=== PATIENT | female | born 1980 | race Hispanic/Latino ===

== ENCOUNTER 2022-11-07 10:20 | Emergency (ER) | payer OTHER ==
--- NOTE | 2022-11-07 10:41 | EDPHYS ---
Physician Documentation [facility] Name: Julia Quach Age: 41 yrs Sex: Female : 1980 Arrival Date: 11/07/2022 Time: 10:20 Bed DX5 Private MD: ED Physician Soumya Christina HPI: 11/07 10:34 This 41 yrs old Female presents to ER via Ambulatory with complaints of Sore cp3 Throat, Congestion. 10:34 The patient presents with sore throat. The patient describes throat pain as burning, cp3 raw, scratchy. Onset: The symptoms/episode began/occurred acutely, 3 day(s) ago. 10:34 Severity of symptoms: At their worst the symptoms were moderate, in the emergency cp3 department the symptoms are unchanged. Modifying factors: The symptoms are alleviated by fluids, over the counter medications, Patient's oral intake status: good Denies contact with similarly ill indivduals. Associated signs and symptoms: Pertinent positives: chills, congestion. The patient has experienced a previous episode, approximately 1 years ago, and the symptoms today are exactly the same. risk factors include: type 1 diabetes. Historical: - Allergies: 10:29 No Known Allergies; ll1 - PMHx: 10:29 Diabetes mellitus; ll1 - PSHx: 10:29 hysterectomy; ll1 - Immunization history:: Adult Immunizations up to date. - Social history:: Smoking status: Patient denies any tobacco usage or history of. - Family history:: not pertinent. ROS: 10:34 Neck: Negative for injury, pain, and swelling, Cardiovascular: Negative for chest pain, cp3 palpitations, and edema, Respiratory: Negative for shortness of breath, cough, wheezing, and pleuritic chest pain, Abdomen/GI: Negative for abdominal pain, nausea, vomiting, diarrhea, and constipation, Back: Negative for injury and pain, MS/Extremity: Negative for injury and deformity, Skin: Negative for injury, rash, and discoloration, Neuro: Negative for headache, weakness, numbness, tingling, and seizure, Psych: Negative for depression, anxiety, suicide ideation, homicidal ideation, and hallucinations, Allergy/Immunology: Negative for hives, rash, and allergies, Endocrine: Negative for neck swelling, polydipsia, polyuria, polyphagia, and marked weight changes, Hematologic/Lymphatic: Negative for swollen nodes, abnormal bleeding, and unusual bruising. 10:34 Constitutional: Positive for chills. 10:34 ENT: Positive for sinus congestion, sore throat. Exam: 10:34 ENT: Exam is negative for injury of acute deformity, earache, ear discharge, foreign cp3 body of the ear, hemotympanum, epistaxis, sinus tenderness, peritonsillar abscess dysphagia, dental infection, exudate, abnormal voice, abnormal breath odor, Posterior pharynx: erythema, that is moderate. 10:34 ENT: Posterior pharynx: exudate, that is mild. 10:48 Constitutional: This is a well developed, well nourished patient who is awake, alert, cp3 and in no acute distress. Eyes: Pupils equal round and reactive to light, extra-ocular motions intact. Lids and lashes normal. Conjunctiva and sclera are non-icteric and not injected. Cornea within normal limits. Periorbital areas with no swelling, redness, or edema. Neck: Trachea midline, no thyromegaly or masses palpated, and no cervical lymphadenopathy. Supple, full range of motion without nuchal rigidity, or vertebral point tenderness. No Meningismus. Chest/axilla: Normal chest wall appearance and motion. Nontender with no deformity. No lesions are appreciated. Cardiovascular: Regular rate and rhythm with a normal S1 and S2. No gallops, murmurs, or rubs. Normal PMI, no JVD. No pulse deficits. Respiratory: Lungs have equal breath sounds bilaterally, clear to auscultation and percussion. No rales, rhonchi or wheezes noted. No increased work of breathing, no retractions or nasal flaring. Abdomen/GI: Soft, non-tender, with normal bowel sounds. No distension or tympany. No guarding or rebound. No evidence of tenderness throughout. Back: No spinal tenderness. No costovertebral tenderness. Full range of motion. Skin: Warm, dry with normal turgor. Normal color with no rashes, no lesions, and no evidence of cellulitis. MS/ Extremity: Pulses equal, no cyanosis. Neurovascular intact. Full, normal range of motion. Neuro: Awake and alert, GCS 15, oriented to person, place, time, and situation. Cranial nerves II-XII grossly intact. Motor strength 5/5 in all extremities. Sensory grossly intact. Cerebellar exam normal. Normal gait. Psych: Awake, alert, with orientation to person, place and time. Behavior, mood, and affect are within normal limits. Vital Signs: 10:27 BP 111 / 79; Pulse 98; Resp 15; Temp 97.6; Pulse Ox 99% ; Weight 63.5 kg; Height 4 ft. ll1 9 in. ; Pain 6/10; 10:27 Body Mass Index 30.30 (63.50 kg, 144.78 cm) ll1 10:27 Pain Scale: Adult ll1 MDM: 10:23 Patient medically screened. cp3 10:34 Differential diagnosis: pharyngitis, upper respiratory infection, viral syndrome. Data cp3 reviewed: vital signs, nurses notes. Consideration of Admission/Observation no emergent indication for hospitalization. Administered Medications: No medications were administered Disposition Summary: 11/07/22 10:40 Discharge Ordered Location: Home cp3 Condition: Stable cp3 Diagnosis - Acute upper respiratory infection, unspecified cp3 - Acute pharyngitis, unspecified cp3 Followup: cp3 - With: Antwon Wilks MD - When: As needed - Reason: Discharge Instructions: - Sore Throat cp3 - Upper Respiratory Infection, Adult cp3 - Discharge Summary Sheet ll1 Forms: - Medication Reconciliation Form cp3 - Thank You Letter cp3 - Antibiotic Education cp3 - Prescription Opioid Use cp3 - Patient Portal Instructions cp3 - Leadership Thank You Letter cp3 - Work release form ll1 Prescriptions: - ketorolac 10 mg Oral tablet - take 1 tablet by ORAL route every 8 hours for 3 days as needed for pain; 15 cp3 tablet; Refills: 0, Product Selection Permitted - Augmentin 500-125 mg Oral Tablet - take 1 tablet by ORAL route every 8 hours for 10 days; 30 tablet; Refills: 0, cp3 Product Selection Permitted Signatures: Soumya Christina MD MD cp3 Mavis Teran RN RN ll1 Corrections: (The following items were deleted from the chart) 10:30 10:29 PSHx: None; ll1 ll1
--- NOTE | 2022-11-07 10:41 | ER ---
Nurse's Notes [facility] Name: Julia Quach Age: 41 yrs Sex: Female : 1980 Arrival Date: 11/07/2022 Time: 10:20 Bed DX5 Private MD: Diagnosis: Acute upper respiratory infection, unspecified;Acute pharyngitis, unspecified Presentation: 11/07 10:27 Chief complaint: Patient states: Chills, sore throat, and congestion started Monday. ll1 Coronavirus screen: Client denies travel out of the [place] in the last 14 days. congestion, fatigue, headache. Ebola Screen: Patient denies travel to an Ebola-affected area in the 21 days before illness onset. Initial Sepsis Screen: Does the patient meet any 2 criteria? No. Patient's initial sepsis screen is negative. Does the patient have a suspected source of infection? Yes: Other: red, sore throat. Risk Assessment: Do you want to hurt yourself or someone else? Patient reports no desire to harm self or others. Onset of symptoms was November 04, 2022. 10:27 Method Of Arrival: Ambulatory ll1 10:27 Acuity: PATRICIA 4 ll1 Triage Assessment: 10:28 General: Appears uncomfortable, Behavior is calm, cooperative, appropriate for age. ll1 Pain: Complains of pain in throat. EENT: Reports nasal congestion pain when swallowing. Neuro: No deficits noted. Cardiovascular: No deficits noted. Historical: - Allergies: 10:29 No Known Allergies; ll1 - PMHx: 10:29 Diabetes mellitus; ll1 - PSHx: 10:29 hysterectomy; ll1 - Immunization history:: Adult Immunizations up to date. - Social history:: Smoking status: Patient denies any tobacco usage or history of. - Family history:: not pertinent. Screenin:50 [facility] ED Fall Risk Assessment (Adult) Score/Fall Risk Level 0 - 2 = Low Risk ll1 Oriented to surroundings, Maintained a safe environment, Educated pt \T\ family on fall prevention, incl call for assistance when getting out of bed, Hourly rounding (assess needs \T\ fall precautionary measures) done. Abuse screen: Denies threats or abuse. Nutritional screening: No deficits noted. Tuberculosis screening: No symptoms or risk factors identified. Assessment: 10:50 Respiratory: Airway is patent Respiratory effort is even, unlabored, Breath sounds are ll1 clear bilaterally. EENT: Throat is reddened. Vital Signs: 10:27 BP 111 / 79; Pulse 98; Resp 15; Temp 97.6; Pulse Ox 99% ; Weight 63.5 kg; Height 4 ft. ll1 9 in. ; Pain 6/10; 10:27 Body Mass Index 30.30 (63.50 kg, 144.78 cm) ll1 10:27 Pain Scale: Adult ll1 ED Course: 10:21 Patient arrived in ED. rg4 10:22 Soumya Christina MD is Attending Physician. cp3 10:28 Triage completed. ll1 10:30 Arm band placed on. ll1 10:40 Antwon Wilks MD is Referral Physician. cp3 10:50 Patient has correct armband on for positive identification. Provided Education on: n/a. ll1 10:50 No provider procedures requiring assistance completed. Patient did not have IV access ll1 during this emergency room visit. Administered Medications: No medications were administered Medication: 10:51 VIS not applicable for this client. ll1 Outcome: 10:40 Discharge ordered by . cp3 10:50 Discharged to home ambulatory. ll1 10:50 Condition: stable 10:50 Discharge instructions given to patient, Instructed on discharge instructions, follow up and referral plans. medication usage, Demonstrated understanding of instructions, follow-up care, medications, Prescriptions given X 2. 10:51 Patient left the ED. ll1 Signatures: Soumya Christina MD MD cp3 Carmen Escamilla rg4 Mavis Teran RN RN ll1 Corrections: (The following items were deleted from the chart) 10:30 10:29 PSHx: None; ll1 ll1 10:31 10:27 BP 111 / 79; Pulse 98bpm; Resp 15bpm; Pulse Ox 99%; ll1 ll1
[2022-11-07 10:55] VITALS: BP 111/79; TEMP 97.6; O2SAT 99
--- OUTSIDE RECORDS SUMMARY | 2022-11-07 11:12 | XMS REPORT | Continuity of Care Document ---
:1980 Author Organization [facility] t Address 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 Allergies, Adverse Reactions, Alerts This patient has no known allergies or adverse reactions. Social History Social Habit Start Date Stop Date Quantity Comments Source Gender identity Louise brady - External Sexual orientation Louise Castañeda - External History of tobacco Cigarette Smoker Louise Seybold use - External Alcohol intake 2022-08-18 2022-08-18 Lifetime Louise Byrd bold 00:00:00 00:00:00 non-drinker - External (finding) History of Social 2022-05-10 2022-05-10 Louise Hairstonold function 00:00:00 00:00:00 - External Sex Ass[birth year] At [birth year] Louise Leija ybold 00:00:00 00:00:00 - External Smoking Status Start Date Stop Date Source Smokes tobacco daily 2022-05-10 00:00:00 Louise Hairstonold - External Medications Ordered Filled Start Stop Current Ordering Indication Dosage Frequency Signature Comments Components Source Medication Medication Date Date Medication? Clinician (SIG) Name Name BD Pen Yes Louise Needle Lily 5-27 Seybold 2nd Gen 32G 00:00: - X 4 MM does 00 Externa not apply l Misc Basaglar Yes 30U Inject 30 Jamila ey KwikPen 100 5-10 units into Se ybold UNIT/ML 00:00: the skin - subcutaneou 00 daily Externa s Solution (with l Pen-injecto breakfast) r Blood Yes [id number] Use as Jesse sey Glucose 06-13 9101 directed Seybold Monitoring 00:00: three - Suppl 00 times Externa (Blood daily l Glucose Monitor System) w/Device does not apply Kit Glucose Yes [id number] 1{each} 1 each by Louise Blood in 06-13 9101 other Seybold vitro Strip 00:00: route - 00 daily Use Externa as l directed three times daily Lisinopril Yes [id number] 5mg Take 1 Louise 5 MG oral 06-07 9101 tablet (5 Seybo ld Tablet 00:00: mg total) - 00 by mouth Externa daily l Insulin Yes [id number] 30U Inject 30 Louise Glargine-yf 3-20 9101 units into Se ybold gn 100 00:00: the skin - UNIT/ML 00 daily Externa subcutaneou (with l s Solution breakfast) Pen-injecto r Tolnaftate Yes [id number] Apply to Louise 1 % apply 2-21 right foot Seyb old externally 00:00: twice a - Cream 00 day for 4 Externa weeks l Tolnaftate Yes [id number] Apply to Louise 1 % apply 05-10 right foot Seyb old externally 00:00: twice a - Cream 00 day for 4 Externa weeks l Triamcinolo 0 2022- No [id number] Apply to Louise ne 2- 06- affected Seybold Acetonide 00:00: 04:59 area on - 0.1 % apply 00 :00 right arm Ext gerardo externally three l Cream times a day for 1-2 weeks Triamcinolo 0 3- No [id number] Apply to Louise ne - 03-22 affected Seybold Acetonide 00:00: 04:59 area on - 0.1 % apply 00 :00 right arm Ext gerardo externally three l Cream times a day for 1-2 weeks Fiasp Yes Louise FlexTouch 2-15 Seybold 100 UNIT/ML 00:00: - subcutaneou 00 Externa s Solution l Pen-injecto r Fiasp Yes Louise FlexTouch 2-15 Seybold 100 UNIT/ML 00:00: - subcutaneou 00 Externa s Solution l Pen-injecto r Continuous Yes USE 1 Louise Blood Gluc 1-30 SENSOR Seyb old Sensor 00:00: DIRECTED - (FreeStyle 00 EVERY 14 Exter na Jnoe 2 DAYS l Sensor) does not apply Misc Continuous Yes USE 1 Louise Blood Gluc 1-30 SENSOR Seyb old Sensor 00:00: DIRECTED - (FreeStyle 00 EVERY 14 Exter na Jone 2 DAYS l Sensor) does not apply Misc Gemfibrozil 2021-03 Yes 1{tbl} Take 1 Ke lsey 600 MG oral 2-27 tablet by Sey bold Tablet 00:00: mouth 2 - 00 times Externa daily l Gemfibrozil 2021-03 Yes 600mg Take 1 Jesse sey 600 MG oral 2-27 tablet Seybol d Tablet 00:00: (600 mg - 00 total) by Externa mouth 2 l times daily Lisinopril 2021-03 Yes 5mg Take 5 mg Ke lsey 5 MG oral 1-30 by mouth Seybol d Tablet 00:00: daily - 00 Externa l Insulin 2021-03 Yes INJECT 20 Kelse y Glargine-yf 1-26 UNITS Seybold gn 100 00:00: UNDER THE - UNIT/ML 00 SKIN ONCE Externa subcutaneou A DAY l s Solution DIRECTED Pen-injecto r Vital Signs Vital Name Observation Time Observation Value Comments Source Systolic blood 2022-08-18 16:37:00 107 mm[Hg] Louise Seybold - pressure External Diastolic blood 2022-08-18 16:37:00 62 mm[Hg] Jesse y Seybold - pressure External Heart rate 2022-08-18 16:37:00 75 /min Louise S eybold - External Body temperature 2022-08-18 16:37:00 37.06 Cristin Jamila ey Seybold - External Respiratory rate 2022-08-18 16:37:00 14 /min Jamila ey Seybold - External Body height 2022-08-18 16:37:00 144.8 cm Louise S eybold - External Body weight 2022-08-18 16:37:00 65.318 kg Louise S eybold - External BMI 2022-08-18 16:37:00 31.16 kg/m2 Louise S eybold - External Oxygen saturation in 2022-08-18 16:37:00 97 /min Louise Castañeda - Arterial blood by External Pulse oximetry Systolic blood 2022-05-10 15:54:00 92 mm[Hg] Louise Hairstonold - pressure External Diastolic blood 2022-05-10 15:54:00 58 mm[Hg] Tami yeung Seybold - pressure External Heart rate 2022-05-10 15:54:00 99 /min Louise S eybold - External Body temperature 2022-05-10 15:54:00 36.39 Cristin Jamila ey Seybold - External Respiratory rate 2022-05-10 15:54:00 14 /min Jamila ey Seybold - External Body height 2022-05-10 15:54:00 144.8 cm Louise S eybold - External Body weight 2022-05-10 15:54:00 63.957 kg Louise S eybold - External BMI 2022-05-10 15:54:00 30.51 kg/m2 Louise rayobogagan - External Procedures This patient has no known procedures. Encounters Start End Encounter Admission Attending Care Care Encounter Source Date/Time Date/Time Type Type Clinicians Facility Department ID 2022-11-07 2022-11-07 Outpatient LOUISE CASTILLO [id number] Louise 00:00:00 00:00:00 JYOTI Seybol d 2022-10-28 2022-10-28 Outpatient LOUISE CASTILLO [id number] Louise 00:00:00 00:00:00 JYOTI Seybol d 2022-10-26 2022-10-26 Outpatient LOUISE CASTILLO [id number] Louise 00:00:00 00:00:00 JYOTI Seybol d 2022-10-05 2022-10-05 Outpatient LOUISE CASTILLO [id number] Louise 00:00:00 00:00:00 JYOTI Seybol d 2022-09-30 2022-09-30 Outpatient LOUISE CASTILLO [id number] Louise 00:00:00 00:00:00 JYOTI Seybol d 2022-09-16 2022-09-16 Outpatient LOUISE CASTILLO [id number] Louise 00:00:00 00:00:00 JYOTI Seybol d 2022-08-18 2022-08-18 Outpatient LOUISE CASTILLO [id number] Louise 15:00:00 15:00:00 JYOTI Seybol d 2022-06-13 2022-06-13 Outpatient LOUISE CASTILLO [id number] Louise 00:00:00 00:00:00 JYOTI Seybol d 2022-06-06 2022-06-06 Outpatient LOUISE CASTILLO [id number] Louise 00:00:00 00:00:00 JYOTI Seybol d 2022-05-17 2022-05-17 Outpatient LOUISE CASTILLO [id number] Louise 00:00:00 00:00:00 JYOTI Seybol d 2022-05-10 2022-05-10 Outpatient LAB90 LOUISE MUHAMMAD [id number] Louise 10:50:00 10:50:00 Seybol d 2022-05-10 2022-05-10 Outpatient LOUISE CASTILLO LOUISE [id number] Louise 10:00:00 10:00:00 JYOTI cifuentes 2021-10-01 2021-10-01 Outpatient NARCISA_RYLEE GUERREROFARRUKH [id number] [place] 03:11:00 03:11:00 HANA [id number] da [facility] 2020-08-23 2020-08-23 Outpatient ERICKSON_R [facility] [id number] [place] 04:42:00 04:42:00 [id number] 2020-08-10 2020-08-10 Outpatient ERICKSON_R [facility] [id number] [place] 12:46:00 12:46:00 524 [facility] 2020-08-10 2020-08-10 Outpatient Saqib [facility] [id number] 00:00:00 00:00:00 Anish [id number] [place] [id number] 2020-05-05 2020-05-05 Outpatient ERICKSON_R [facility] [id number] [place] 06:32:00 06:32:00 [facility] 2020-04-01 2020-04-01 Outpatient ERICKSON_R [facility] [id number] [place] 01:03:00 01:03:00 113 [facility] 2020-02-26 2020-02-26 Outpatient ERICKSON_R [facility] [id number] [place] 01:03:00 01:03:00 105 [facility] Results This patient has no known results.
== END 2022-11-07 10:51 | disposition home or self-care (01) ==
LOC: ER 10:20
DX: J06.9 Acute upper respiratory infection, unspecified (principal); E11.9 Type 2 diabetes mellitus without complications
CPT/HCPCS: 99283